=== PATIENT | male | born 1975 | race Caucasian/White ===

== ENCOUNTER 2017-11-20 10:14 | Day surgery (SDC) | payer BC ==
[~2017-11-20 10:14] MED LIST: Acetaminophen/HYDROcodone 325-5 MG Tab PO PRN; Ketorolac 10 MG Tab PO PRN; Lactated Ringers 1,000 ML IV SCH; ceFAZolin 2 GM in Premix Bag 1 BAG IV SCH
--- NOTE | 2017-11-20 11:34 | PCM.PREANE ---
Preanesthetic Assessment - Anesthesia/Transfusion/Family Hx Anesthesia History: No Prior Anesthesia (wisdom teeth extraction only) Family History of Anesthesia Reaction: No Transfusion History: No Prior Transfusion(s) - Review of Systems General: No Symptoms Pulmonary: No Symptoms Cardiovascular: No Symptoms Gastrointestinal: No Symptoms Neurological: No Symptoms Other: Reports: None - Physical Assessment NPO Status Date: 11/19/17 Height: 1.75 m Weight: 104.326 kg ASA Class: 1 Mental Status: Alert & Oriented x3 Airway Class: Mallampati = 1 Dentition: Reports: Normal Dentition ROM/Head Extension: Full Lungs: Clear to Auscultation, Normal Respiratory Effort Cardiovascular: Regular Rate, Regular Rhythm - Allergies Allergies/Adverse Reactions: Allergies Allergy/AdvReac Type Severity Reaction Status Date / Time No Known Allergies Allergy Verified 11/15/17 10:49 - Anesthesia Plan Pre-Op Medication Ordered: None - Acknowledgements Anesthesia Type Planned: General Anesthesia Pt an Appropriate Candidate for the Planned Anesthesia: Yes Alternatives and Risks of Anesthesia Discussed w Pt/Guardian: Yes Pt/Guardian Understands and Agrees with Anesthesia Plan: Yes PreAnesthesia Questionnaire HEENT History: Reports: None Respiratory History: Reports: Asthma Musculoskeletal History: Reports: None Endocrine/Metabolic History: Reports: Obesity/BMI 30+ - Past Surgical History Head Surgeries/Procedures: Reports: None HEENT Surgical History: Reports: Oral Surgery Female Surgical History: Reports: None - SUBSTANCE USE Smoking Status *Q: Never Smoker Recreational Drug Use History: No - HOME MEDS Home Medications: Home Meds Acetaminophen [Tylenol] 2 tab PO ASDIRECTED PRN 11/15/17 [History] - CURRENT (IN HOUSE) MEDS Current Meds: Current Medications Hydrocodone Bitart/Acetaminophen ([place] 325-5 Mg) 1 - 2 tab PO Q4H PRN PRN Reason: Pain Cefazolin Sodium/Dextrose 2 gm (/ Premix) 50 mls @ 100 mls/hr IV ONCALL LINDA Lactated Ringer's (Ringers, Lactated) 1,000 mls @ 100 mls/hr IV ASDIRECTED REPLACED BY [facility] Last Admin: 11/20/17 11:24 Dose: 100 mls/hr Ketorolac Tromethamine (Toradol) 10 mg PO Q6H PRN PRN Reason: Pain Stop: 11/25/17 08:01
--- NOTE | 2017-11-20 13:19 | PCM.POSTAN ---
POST ANESTHESIA ASSESSMENT - MENTAL STATUS Mental Status: Alert, Oriented - RESPIRATORY Respiratory Status: Respiratory Rate WNL, Airway Patent, O2 Saturation Stable - CARDIOVASCULAR CV Status: Pulse Rate WNL, Blood Pressure Stable - GASTROINTESTINAL GI Status: No Symptoms - POST OP HYDRATION Hydration Status: Adequate & Stable
[2017-11-20] MEDS ORDERED: Propofol 200 MG/20 ML SDV ONE ×2 (13:47→13:52)
[2017-11-20] MEDS ORDERED: Lidocaine 2% 5 ML SDV ONE ×2 (13:47→13:51)
[2017-11-20] MEDS ORDERED: Midazolam 1 MG/ML 2 ML SDV ONE (13:52)
[2017-11-20] MEDS ORDERED: fentaNYL 250 MCG/5 ML SDV ONE (13:52)
[2017-11-20] MEDS ORDERED: fentaNYL 100 MCG/2 ML SDV ONE (13:52)
[2017-11-20] MEDS ORDERED: Ondansetron 4 MG/2 ML SDV ONE (13:56)
[2017-11-20] MEDS ORDERED: Ketorolac 30 MG/ML SDV ONE (13:56)
[2017-11-20] MEDS ORDERED: Sodium Chloride 0.9% 20 ML ONE (14:00)
[2017-11-20] MEDS ORDERED: cefOXitin 1 GM Vial ONE (14:00)
[2017-11-20] MEDS ORDERED: Neostigmine Methylsulfate 1 MG/ML 5 ML Syringe ONE (16:07)
[2017-11-20] MEDS ORDERED: Glycopyrrolate 0.2 MG/ML SDV ONE (16:07)
[2017-11-20] MEDS ORDERED: Bupivacaine 0.5% 10 ML SDV ONE (16:13)
--- NOTE | 2017-11-20 16:35 | PCM.OPNOTE ---
- General Post-Op/Procedure Note Date of Surgery/Procedure: 11/20/17 Operative Procedure(s): open repair R Achilles tendon Post-Op Diagnosis: R Achilles tendon tear Anesthesia Technique: General ET Tube Primary Surgeon: Carla Aelxander Charge Hand: Comfort Ramirez in mLs: 10 Condition: Good Free Text/Narrative:: tt=39 min #[id number]
[2017-11-20] MEDS: fentaNYL 100 MCG/2 ML SDV IVPUSH PRN ×2 (16:51→16:56)
--- NOTE | 2017-11-20 17:02 | PCM.POSTAN ---
POST ANESTHESIA ASSESSMENT - MENTAL STATUS Mental Status: Alert, Oriented - RESPIRATORY Respiratory Status: Respiratory Rate WNL, Airway Patent, O2 Saturation Stable - CARDIOVASCULAR CV Status: Pulse Rate WNL, Blood Pressure Stable - GASTROINTESTINAL GI Status: No Symptoms - PAIN Pain Score: 2 - POST OP HYDRATION Hydration Status: Adequate & Stable
--- NOTE | 2017-11-20 18:08 | PCM48HPAN ---
Post Anesthesia Note - EVALUATION WITHIN 48HRS OF ANESTHETIC Vital Signs in Normal Range: Yes Patient Participated in Evaluation: Yes Respiratory Function Stable: Yes Airway Patent: Yes Cardiovascular Function Stable: Yes Hydration Status Stable: Yes Pain Control Satisfactory: Yes Nausea and Vomiting Control Satisfactory: Yes Mental Status Recovered: Yes Resp Rate: 16
--- NOTE | 2017-11-20 22:29 | OR ---
SURGEON: Carla Alexander MD DATE OF PROCEDURE: 11/20/2017 PREOPERATIVE DIAGNOSIS: Right Achilles tendon rupture. POSTOPERATIVE DIAGNOSIS: Right Achilles tendon rupture. PROCEDURE: Open repair of right Achilles tendon. [employer]ES [employer] DEVELOPER: Comfort Ramirez PA-C ANESTHESIA: General. ESTIMATED BLOOD LOSS: 10 mL. TOURNIQUET TIME: 59 minutes. COMPLICATIONS: None. DVT PROPHYLAXIS: PAS boot to the nonoperative leg. IMPLANTS USED: None. BRIEF HISTORY: Zana is a 42-year-old male, who injured his right ankle while playing basketball. An MRI did confirm a tear of the Achilles tendon. We discussed both conservative and surgical treatment options. He elected to proceed with surgical treatment. The risks and goals of procedure were discussed with the patient and were documented preoperatively. He agreed to proceed. DESCRIPTION OF PROCEDURE: The patient was properly identified and brought to the operating room. General anesthesia was administered on the operating room cart. After adequate anesthesia was obtained, a well-padded tourniquet was applied to the right lower extremity. He was then placed in the prone position on the operating room table. Care was taken to pad all bony prominences. Chest rolls were used to allow his abdominal contents to hang free. A defect was palpated over the posterior aspect of the right Achilles tendon. He did have a positive Zuniga sign. The right lower extremity was then prepped in standard fashion using ChloraPrep solution. It was then sterilely draped. A time-out was performed to ensure correct site and procedure. Preoperative antibiotics were given. The surgical site had been marked preoperatively. The tourniquet was then inflated. An incision was made over the posterior aspect of the low leg, centered over the site of the palpable defect. Deep tissue bridges were performed. The paratenon was identified and this was also incised. The rupture was immediately noted. The tendon edges were quite frayed. A small remaining anterior bridge of tissue was all that remained of the tendon attachment. The edges were then cleaned and delivered to the wound. The edges were trimmed to allow for even repair. A #2 FiberWire was then placed using a modified Krackow stitch with limbs running both medial and laterally on both the distal and proximal segments. Following this, the ends were reapproximated. We did check the tension on the repair compared to the contralateral side. Once the suture ends were tied, the Zuniga test was no longer positive and with pressure on the calf, plantar flexion did occur. The repair was then oversewn with 0 Vicryl. The wound was then irrigated with saline solution. The paratenon was then closed over the tendon using 0 Vicryl. The subcutaneous tissues were closed with 2-0 Monocryl and the skin was closed with kortney. The tourniquet was deflated prior to final wound closure and no excess bleeding was noted. Marcaine 0.5% was injected along the incision site. Xeroform gauze was placed over the wound and a bulky dressing was applied. He was placed in a well-padded posterior splint with the foot in slight plantar flexion. He was awakened from his anesthetic and transferred back to the operating room cart. He was brought to recovery room in stable condition. All needle and sponge counts were correct. ROCIO / KERVIN /[id number]
== END 2017-11-20 21:05 | disposition home or self-care (01) ==
LOC: MW.SDS 10:14 → MW.MS 16:30 → MW.SDS 21:05
PROVIDERS: ATTEND Orthopaedic Surgery
DX: S86.011A Strain of right Achilles tendon, initial encounter (principal); J45.909 Unspecified asthma, uncomplicated; E66.9 Obesity, unspecified; Z68.34 Body mass index [BMI] 34.0-34.9, adult; Y93.67 Activity, basketball
CPT/HCPCS: 27650; A9270; J0694; J1885; J2250; J2405; J3010; J7120; 01472; J2704